=== PATIENT | female | born 1950 | race Caucasian/White ===

== ENCOUNTER → 2017-04-22 | Outpatient (CLI) | payer MEDICARE, OTHER ==
[2015-07-01 22:15] VITALS: BP 141/89
--- NOTE | 2017-04-22 15:21 | RAD ---
Indication bilateral flank discomfort. Hematuria for 5 days. Grayscale imaging targeted to the kidneys was performed. No similar imaging is available. The right kidney measures 12 x 5.4 x 5.2 cm. There are several small stones seen associated with the right kidney. The left kidney measures 10.7 x 5.2 x 4.8 cm. Stones are also seen in the left kidney the largest measuring approximately 7 mm. No hydronephrosis or solid mass is seen associated with either kidney. The urinary bladder appears grossly normal. IMPRESSION: Bilateral renal calculi. No evidence of hydronephrosis or solid mass seen associated with either kidney
== END | disposition home or self-care (01) ==
LOC: US 13:35
PROVIDERS: ATTEND Physician Assistant
DX: N20.0 Calculus of kidney (principal)
CPT/HCPCS: 76770

== ENCOUNTER 2017-08-29 12:02 | Emergency (ER) | payer MEDICARE, OTHER ==
[~2017-08-29] VITALS: Ht 170.2 cm; Wt 136.1 kg
--- NOTE | 2017-08-29 12:55 | PHYS DOC ---
Past History Past Medical History: COPD, High Cholesterol, Hypertension, Hypothyroid, Hypotension Past Surgical History: Hysterectomy Smoking: Non-smoker Alcohol Use: None Drug Use: None Adult General Chief Complaint Chief Complaint: UPPER EXT PAIN HPI HPI 67-year-old male patient states she had left upper extremity DVT 6 or 7 years ago and currently doesn't take anticoagulation medication. Patient complaining of cough for 2 weeks and states she was seen by her primary care physician and had irregular heartbeat and referred to architectural coating finisher but haven't seen by architectural coating finisher yet. Patient states her cough getting better and denies fever. Patient complaining of left lower posterior thoracic pain for the last 3 days as a mild and aching pain with radiation to left arm that getting force with movement. Patient states her left arm is having swelling and aching pain like her previous episodes of DVT. Patient also complaining of episodes of dizziness for chronic problem. Patient states she called her primary care physician today and he was of office because of sickness. Review of Systems Review of Systems Constitutional: Denies fever or chills [] Eyes: Denies change in visual acuity, redness, or eye pain [] HENT: Denies nasal congestion or sore throat [] Respiratory: Denies shortness of breath, reports cough, [] Cardiovascular: No additional information not addressed in HPI [] GI: Denies abdominal pain, nausea, vomiting, bloody stools or diarrhea [] : Denies dysuria or hematuria [] Musculoskeletal: Ports back pain and extremity pain Integument: Denies rash or skin lesions [] Neurologic: Denies headache, focal weakness or sensory changes [] Endocrine: Denies polyuria or polydipsia [] All other systems were reviewed and found to be within normal limits, except as documented in this note. Allergies Allergies Allergies Coded Allergies Type Severity Reaction Last Updated Verified aspirin Allergy Unknown 08/29/17 Yes Physical Exam Physical Exam Constitutional: Well developed, well nourished, mild distress, non-toxic appearance, morbidly obese. [] HENT: Normocephalic, atraumatic, bilateral external ears normal, oropharynx moist, no oral exudates, nose normal. [] Eyes: PERRLA, EOMI, conjunctiva normal, no discharge. [] Neck: Normal range of motion, no tenderness, supple, no stridor. [] Cardiovascular:Heart rate regular rhythm, no murmur [] Lungs & Thorax: Bilateral breath sounds clear to auscultation , left posterior lower chest wall muscle tenderness[] Abdomen: Bowel sounds normal, soft, no tenderness, no masses, no pulsatile masses. [] Skin: Warm, dry, no erythema, no rash. [] Back: No tenderness, no CVA tenderness. [] Extremities: No tenderness, no cyanosis, no clubbing, ROM intact, left upper extremity with marked edema without limited range of motion or neurovascular deficit Neurologic: Alert and oriented X 3, normal motor function, normal sensory function, no focal deficits noted. [] Psychologic: Affect normal, judgement normal, mood normal. [] EKG EKG [] Radiology/Procedures Radiology/Procedures [] Course & Med Decision Making Course & Med Decision Making Pertinent Labs and Imaging studies reviewed. (See chart for details) Evaluation of patient in ER showed 67-year-old female patient with history of DVT presented to ER because of left back and arm pain for 2 days and cough for 2 weeks. Patient had negative ultrasound for DVT and chest x-ray and UA. Plan discharge patient home to diagnose of chest wall muscular skeletal pain. Patient did not want to have pain medication in ER or prescription of pain medication for home. [] Dragon Disclaimer Dragon Disclaimer This electronic medical record was generated, in whole or in part, using a voice recognition dictation system. Departure Departure: Impression: Primary Impression: Musculoskeletal chest pain Disposition: HOME, SELF-CARE (At 1443) Condition: STABLE Referrals: BARBY MOTLEY MD (PCP) Patient Instructions: Musculoskeletal Pain Additional Instructions: Continue home pain medication Follow-up with your primary care physician in 3-5 days Return to ER if not getting better OSVALDO BELLAMY MD Aug 29, 2017 12:54
--- NOTE | 2017-08-29 13:31 | RAD ---
Chest, 2 views, 08/29/2017: History: Chest pain Comparison is made to a study from 05/05/2014. The heart size and pulmonary vascularity are normal. No pulmonary infiltrates are seen. There is no evidence of pleural fluid. Mild spurring is present in the spine. IMPRESSION: No acute cardiopulmonary abnormality is detected.
--- NOTE | 2017-08-29 13:35 | RAD ---
Left upper extremity venous duplex ultrasound. 08/29/2017 1:32 PM Indication: Left upper extremity pain and edema, history of DVT Comparison study: None Discussion: Sonographic evaluation of the deep veins of the left upper extremity was performed. This includes grayscale imaging and color duplex imaging with spectral analysis. No evidence of deep venous thrombosis is seen. Interrogated veins are compressible and demonstrate augmentable blood flow and color Doppler imaging. Impression: No evidence of deep venous thrombosis involving the left upper extremity
[2017-08-29 13:47] LABS: BACTERIA,URINE FEW /HPF (0-FEW); BILIRUBIN,URINE NEG (NEG); CLARITY,URINE HAZY; COLOR,URINE STRAW; GLUCOSE,URINE NEG (NEG); NITRITE,URINE NEG (NEG); RBC,URINE 0 /HPF (0-2); SQUAMOUS EPITHELIAL CELL,UR MOD /LPF; UROBILINOGEN,URINE 0.2 mg/dL (0.2 mg/dL); WBC,URINE 0 /HPF (0-4)
[2017-08-29 14:40] VITALS: BP 139/80
== END 2017-08-29 14:47 | disposition home or self-care (01) ==
LOC: ER 12:02
DX: R07.89 Other chest pain (principal); M79.602 Pain in left arm; M54.6 Pain in thoracic spine; R42 Dizziness and giddiness; E78.00 Pure hypercholesterolemia, unspecified; E03.9 Hypothyroidism, unspecified; I10 Essential (primary) hypertension; J44.9 Chronic obstructive pulmonary disease, unspecified; Z86.718 Personal history of other venous thrombosis and embolism; Z88.6 Allergy status to analgesic agent
CPT/HCPCS: 71046; 81001; 93971; 99285-25

== ENCOUNTER → 2019-02-06 | Outpatient (CLI) | payer MEDICARE, OTHER ==
--- NOTE | 2019-02-06 16:24 | RAD ---
Ultrasound of the abdomen 02/06/2019 CLINICAL HISTORY: Right upper quadrant abdominal pain for 4 days. TECHNIQUE: A real-time ultrasound examination of the abdomen was performed. Multiple images were obtained. FINDINGS: The gallbladder is well-distended. No gallstones are visualized. The gallbladder wall thickness is within normal limits. No pericholecystic fluid is seen. The common bile duct measures 4 mm in diameter which is within normal limits. The liver is normal in size measuring 17.7 cm in length. No focal abnormality of the liver is seen. The spleen, visualized portions of pancreas and both kidneys are within normal limits. Atherosclerotic calcification of the abdominal aorta is seen. The abdominal aorta is tortuous and ectatic but tapers normally. The inferior vena cava is within normal limits. No free fluid is seen. IMPRESSION: Negative study. Electronically signed by: Schuyler Hernandez MD (02/06/2019 4:21 PM) [facility]
== END | disposition home or self-care (01) ==
LOC: US 14:51
PROVIDERS: ATTEND Specialist
DX: I77.811 Abdominal aortic ectasia (principal); I70.0 Atherosclerosis of aorta
CPT/HCPCS: 76700

== ENCOUNTER → 2020-03-04 | Outpatient (CLI) | payer MEDICARE, OTHER ==
--- NOTE | 2020-03-04 15:55 | CARD ---
MR#: [id number] Date of Study: 03/04/2020 Ordering Physician: MATT NAPIER, Referring Physician: MATT NAPIER Tech: Ainsley Scott RDCS APPROVED REPORT EXAM: Two-dimensional and M-mode echocardiogram with Doppler and color Doppler. Other Information Quality : Good INDICATION Hypertension/HCVD 2D DIMENSIONS RVDd3.1 (2.9-3.5cm)Left Atrium(2D)3.3 (1.6-4.0cm) IVSd0.9 (0.7-1.1cm)Aortic Root(2D)3.0 (2.0-3.7cm) LVDd5.4 (3.9-5.9cm)LVOT Diameter2.1 (1.8-2.4cm) PWd0.8 (0.7-1.1cm)LVDs3.5 (2.5-4.0cm) FS (%) 34.1 %SV87.9 ml LVEF(%)62.6 (>50%) Aortic Valve AoV Peak Gee.153.8cm/sAoV VTI34.4cm AO Peak GR.9.5mmHgLVOT Peak Gee.131.5cm/s LVOT VTI 29.92cmAO Mean GR.5mmHg SHORTY (VMAX)2.41le7ZRY (VTI)2.88cm2 Mitral Valve MV E Sgbfqksv66.5cm/sMV DECEL ODES602ol MV A Weypzqaf876.7cm/sE/A Ratio0.9 Pulmonary Vein S1 Cyiaabqr55.1cm/sD2 Zjrjhpra50.5cm/s LEFT VENTRICLE The left ventricle is normal size. There is normal left ventricular wall thickness. The left ventricu lar systolic function is normal. The Ejection Fraction is 55-60%. There is normal LV segmental wall m otion. Transmitral Doppler flow pattern is Grade I-abnormal relaxation pattern. RIGHT VENTRICLE The right ventricle is normal size. The right ventricular systolic function is normal. ATRIA The left atrium size is normal. The right atrium size is normal. The interatrial septum is intact wit h no evidence for an atrial septal defect or patent foramen ovale as noted on 2-D or Doppler imaging. AORTIC VALVE The aortic valve is calcified but opens well. Doppler and Color Flow revealed no significant aortic r egurgitation. There is no significant aortic valvular stenosis. MITRAL VALVE The mitral valve is normal in structure and function. There is no evidence of mitral valve prolapse. There is no mitral valve stenosis. Doppler and Color Flow revealed no mitral valve regurgitation note d. TRICUSPID VALVE The tricuspid valve is normal in structure and function. Doppler and Color Flow revealed no tricuspid valve regurgitation noted. There is no tricuspid valve stenosis. PULMONIC VALVE The pulmonic valve is not well visualized. Doppler and Color Flow revealed no pulmonic valvular regur gitation. There is no pulmonic valvular stenosis. GREAT VESSELS The aortic root is normal in size. The ascending aorta is normal in size. The IVC is normal in size a nd collapses >50% with inspiration. PERICARDIAL EFFUSION There is no evidence of significant pericardial effusion. Critical Notification Critical Value: No <Conclusion> The left ventricular systolic function is normal. The Ejection Fraction is 55-60%. There is normal LV segmental wall motion. Transmitral Doppler flow pattern is Grade I-abnormal relaxation pattern. There is no evidence of significant pericardial effusion. Signed by : Matt Napier, Electronically Approved : 03/04/2020 15:54:22
== END | disposition home or self-care (01) ==
LOC: ECHO 13:28
PROVIDERS: ATTEND Internal Medicine Cardiovascular Disease
DX: I35.1 Nonrheumatic aortic (valve) insufficiency (principal); I10 Essential (primary) hypertension
CPT/HCPCS: 93306

== ENCOUNTER → 2020-04-09 | Outpatient (CLI) | payer MEDICARE, OTHER ==
--- NOTE | 2020-04-10 09:52 | RAD ---
MR#: [id number] Date of Study: 04/09/2020 Ordering Physician: MATT NAPIER, Referring Physician: MATT NAPIER, Tech: Montse Bojorquez RVT, SHIMA APPROVED REPORT Patient Location : OUT-PATIENT Indications Lower Extremity Edema : Baldwin scale images of the bilateral saphenofemoral junctions reveals no evidence of thrombus on limite d images. The RGSV measures 4 mm and the left GSV measures 7 mm. No significant reflux noted in the GSV. Bilateral LSV are to small to evaluate on this study. Past History Critical Notification Critical Value: No <Conclusion> 1. Negative for reflux in the bilateral GSV. Signed by : Jai Wang, Electronically Approved : 04/10/2020 09:52:22
== END | disposition home or self-care (01) ==
LOC: US 12:55
PROVIDERS: ATTEND Internal Medicine Cardiovascular Disease
DX: R60.0 Localized edema (principal)
CPT/HCPCS: 93970

== ENCOUNTER → 2020-09-18 | Outpatient (CLI) | payer MEDICARE, OTHER ==
--- NOTE | 2020-09-18 14:48 | RAD ---
Examination: CT chest without contrast HISTORY: History of lung nodule COMPARISON: None available Technique: Axial CT images of the chest performed without contrast. Coronal and sagittal reformats ar e performed. Exposure: One or more of the following individualized dose reduction techniques were utilized for thi s examination: 1. Automated exposure control 2. Adjustment of the mA and/or kV according to patient size 3. Use of iterative reconstruction technique FINDINGS: The central airways are patent. Coronary artery calcifications. The caliber of the aorta grossly appe ars unremarkable. Moderate aortic atherosclerosis. No evidence for radiologically significant mediastinal lymphadenopat hy. 7 mm nodule right upper lobe of the lung. 4 mm nodule right middle lobe of the lung. No evidence of pleural effusion or pneumothorax. The partially visualized right lobe of the liver measures 1.7 cm hypodensity. The adrenals grossly appears unremarkable. Moderate degenerative changes thoracic spine . IMPRESSION: 1. 7 mm nodule right upper lobe of the lung and 4 mm nodule right middle lobe of the lung. Follow-up per Fleischner Society guidelines with a follow-up CT in 6-12 months. 2. 1.7 cm hypodensity partially visualized in the right lobe of the liver. Follow-up ultrasound righ t upper quadrant is recommended. Electronically signed by: Vikas Hurley MD (09/18/2020 2:45 PM) [id number]
== END ==
LOC: CT 11:26
PROVIDERS: ATTEND Family Medicine
DX: R91.8 Other nonspecific abnormal finding of lung field (principal)
CPT/HCPCS: 71250

== ENCOUNTER → 2020-09-25 | Outpatient (CLI) | payer MEDICARE, OTHER ==
--- NOTE | 2020-09-25 11:10 | RAD ---
US ABDOMEN COMPLETE History: Hepatomegaly Comparison: CT chest 09/18/2020 Technique: Sonographic examination of the abdomen. Findings: Liver: The liver measures 16.8 cm. Liver echotexture is normal. A 2.7 cm diameter right hepatic lobe cyst is identified corresponding to CT finding. Hepatopetal flow in the portal vein. Gallbladder: No gallstones, wall thickening or pericholecystic fluid. Bile ducts: The common duct measures 3 mm. Pancreas: The pancreatic duct is mildly dilated measuring 2.6 mm diameter. Visualized portions of jack creas otherwise unremarkable remainder of the pancreas is limited by bowel gas artifact. Spleen: 11.6 cm. Normal size and echotexture. No focal lesion. Right kidney: 11.2 cm in length. No focal lesion, calculi or hydronephrosis. Left kidney: 10.4 cm in length. No focal lesion, calculi or hydronephrosis. Aorta/IVC: Aorta measures 2.4 cm diameter proximally, 1.8 cm at the mid and 2.7 cm distally. IVC is u nremarkable. Other: No ascites. Impression: 1. Normal hepatic size and echotexture with a benign right hepatic cyst measuring 2.8 cm maximal rory meter. 2. Minimally dilated pancreatic duct, 2.6 mm diameter. 3. Distal aortic ectasia measuring 2.7 cm diameter. Electronically signed by: Tino Mcqueen MD (09/25/2020 11:08 AM) [facility]ITAL[facility]IKIS
== END ==
LOC: US 07:52
PROVIDERS: ATTEND Specialist
DX: K76.89 Other specified diseases of liver (principal); I77.811 Abdominal aortic ectasia; K86.89 Other specified diseases of pancreas; R16.0 Hepatomegaly, not elsewhere classified
CPT/HCPCS: 76700

== ENCOUNTER → 2021-02-10 | Outpatient (CLI) | payer MEDICARE, OTHER ==
--- NOTE | 2021-02-10 09:08 | RAD ---
EXAM: Abdominal aortic sonogram. HISTORY: Aneurysm screening. Hypertension. Cigarette smoking. TECHNIQUE: Sonographic imaging of the abdominal aorta was performed. COMPARISON: 09/25/2020. FINDINGS: The proximal abdominal aorta measures 2.8 cm in maximum caliber. The mid abdominal area marty sures 2.5 cm in maximum caliber. The distal abdominal aorta measures 2.8 cm in maximum caliber. The c ommon iliac arteries measure 1.8 cm on the right and 1.4 cm the left. There is calcified atherosclero tic plaque within the aorta and iliac bifurcation. IMPRESSION: Ectatic atherosclerotic distal abdominal aorta measuring 2.8 cm in maximum caliber. No an eurysm is seen. Electronically signed by: May Oglesby MD (02/10/2021 9:06 AM) [id number]
--- NOTE | 2021-02-10 11:28 | RAD ---
EXAM: DUAL ENERGY X-RAY ABSORPTIOMETRY (DEXA). HISTORY: Postmenopausal screening. FINDINGS: The lowest measured T-score is -1.2 in the right hip, based on a bone mineral density of 0. 811 g/cm^2. Refer to the worksheets for full detail. There has been a 3.0 percent increase in density of the right hip and 16.7 percent increase in densit y of the lumbar spine compared to a study performed 11/11/2009. IMPRESSION: 1. Low bone mass. Bone mineral density yields a T-score between -1.0 and -2.5. Fracture risk is incre ased. 2. FRAX report: Not calculated. METHODOLOGY: Dual energy x-ray absorptiometry was performed to measure bone mineral density. The foll owing analysis is based on the 2019 Official Positions of the International Society for Clinical Dens itometry: Measurements of the hips and the average of L1-L4 are preferred. When the spine and/or hip cannot be feasibly measured or interpreted, or in the setting of hyperparathyroidism, distal radial bone minera l density may be measured. The lumbar spine T-score is based on the average bone mineral density of L1-L4. In the setting of art ifact or anatomic abnormality, some lumbar levels may be excluded, and the remaining levels used for calculation. A single lumbar level is not used for diagnosis, and if only a single level is available for assessment, another anatomic site will be used to assign a diagnosis. The hip T-score is based on the bone mineral density measurement of the femoral neck or total proxima l femur of either side, whichever is lowest. Bilateral mean values are not used for diagnosis. The forearm T-score is derived from 33% of the distal radius of the nondominant forearm. Electronically signed by: May Oglesby MD (02/10/2021 11:26 AM) [id number]
== END ==
LOC: US 07:57
PROVIDERS: ATTEND Specialist
DX: Z00.00 Encounter for general adult medical examination without abnormal findings (principal); I70.0 Atherosclerosis of aorta; I70.8 Atherosclerosis of other arteries; Z78.0 Asymptomatic menopausal state
CPT/HCPCS: 76770; 77080

== ENCOUNTER → 2021-05-05 | Outpatient (CLI) | payer MEDICARE, OTHER ==
--- NOTE | 2021-05-06 08:30 | CARD ---
MR#: [id number] Date of Study: 05/05/2021 Ordering Physician: MATT NAPIER, Referring Physician: MATT NAPIER, Tech: Courtney Son [facility] APPROVED REPORT EXAM: Two-dimensional and M-mode echocardiogram with Doppler and color Doppler. Other Information Quality : AverageHR: 76bpm Technically limited study due to body habitus. INDICATION COPD Hypertension/HCVD 2D DIMENSIONS RVDd3.7 (2.9-3.5cm)Left Atrium(2D)3.2 (1.6-4.0cm) IVSd1.2 (0.7-1.1cm)Aortic Root(2D)2.9 (2.0-3.7cm) LVDd5.1 (3.9-5.9cm)LVOT Diameter2.0 (1.8-2.4cm) PWd1.3 (0.7-1.1cm)LVDs3.1 (2.5-4.0cm) FS (%) 40.0 %SV87.7 ml LVEF(%)70.3 (>50%) Aortic Valve AoV Peak Gee.173.5cm/sAoV VTI44.3cm AO Peak GR.12.0mmHgLVOT Peak Gee.120.9cm/s LVOT VTI 31.54cmAO Mean GR.6mmHg SHORTY (VMAX)2.82gh8FII (VTI)2.15cm2 Mitral Valve MV E Lyjrttrz416.9cm/sMV E Peak Gr.5mmHg MV DECEL TTFM326irVN A Xvyfjrgu539.0cm/s MV E Mean Gr.2mmHgE/A Ratio0.9 Tricuspid Valve TR P. Ehbmsxvf134eb/sRAP YMONYEOH7oeEe TR Peak Gr.12xlAkTSSM31jpZv Pulmonary Vein S1 Gfkccpdn62.8cm/sD2 Bljrkctq30.7cm/s LEFT VENTRICLE The left ventricle is normal size. There is mild to moderate concentric left ventricular hypertrophy. The left ventricular systolic function is normal and the ejection fraction is within normal range. T he Ejection Fraction is >55%. There is normal LV segmental wall motion. Transmitral Doppler flow lula power is Grade I-abnormal relaxation pattern. RIGHT VENTRICLE The right ventricle is normal size. There is normal right ventricular wall thickness. The right ventr icular systolic function is normal. ATRIA The left atrium size is normal. The right atrium size is normal. The interatrial septum is intact wit h no evidence for an atrial septal defect or patent foramen ovale as noted on 2-D or Doppler imaging. AORTIC VALVE The aortic valve is normal in structure and function. Doppler and Color Flow revealed no significant aortic regurgitation. There is no significant aortic valvular stenosis. Calculated aortic valve area is 1.8 cm2 with maximum pressure gradient of 12 mmHg and mean pressure gradient of 6 mmHg. MITRAL VALVE The mitral valve is normal in structure and function. There is no evidence of mitral valve prolapse. There is no mitral valve stenosis. Doppler and Color-flow revealed trace mitral regurgitation. TRICUSPID VALVE The tricuspid valve is normal in structure and function. Doppler and Color Flow revealed trace tricus pid regurgitation with an estimated PAP of 33 mmHg. There is no tricuspid valve stenosis. PULMONIC VALVE The pulmonic valve is not well visualized. Doppler and Color Flow revealed trace pulmonic valvular re gurgitation. There is no pulmonic valvular stenosis. GREAT VESSELS The aortic root is normal in size. The ascending aorta is normal in size. The IVC is normal in size a nd collapses >50% with inspiration. PERICARDIAL EFFUSION There is no evidence of significant pericardial effusion. Critical Notification Critical Value: No <Conclusion> The left ventricular systolic function is normal and the ejection fraction is within normal range. Th e Ejection Fraction is >55%. There is normal LV segmental wall motion. Signed by : Jai Wang, Electronically Approved : 05/06/2021 08:29:55
== END ==
LOC: ECHO 14:17
PROVIDERS: ATTEND Internal Medicine Cardiovascular Disease
DX: I51.7 Cardiomegaly (principal); I10 Essential (primary) hypertension
CPT/HCPCS: 93306

== ENCOUNTER → 2021-07-20 | Outpatient (CLI) | payer MEDICARE, OTHER ==
--- NOTE | 2021-07-20 15:16 | RAD ---
EXAM: Abdomen series, 3 views. HISTORY: Pain. COMPARISON: 09/18/2020 FINDINGS: A frontal view of the chest and frontal upright and supine views of abdomen are obtained. T here are chronic appearing interstitial changes throughout both lungs. There is no consolidation, pro trusion or pneumothorax. The heart is normal in size. There is a small amount of gas and stool within the colon and rectum. There is no evidence of bowel obstruction or free air. IMPRESSION: 1. Chronic appearing interstitial changes. 2. Nonobstructive bowel gas pattern. Electronically signed by: May Oglesby MD (07/20/2021 3:14 PM) [id number]
== END ==
LOC: RAD 14:54
PROVIDERS: ATTEND Physician Assistant
DX: R10.31 Right lower quadrant pain (principal)
CPT/HCPCS: 74022